=== PATIENT | female | born 1965 ===

== ENCOUNTER 2017-03-23 08:48 | Emergency (ER) | payer OTHER ==
[2017-03-23 08:53] VITALS: RESP 18; TEMP 97.6; BMI 34.0
--- NOTE | 2017-03-23 09:23 | C.PDOC ---
History Of Present Illness 51F c/o itching "burning" rash that started on her lower back 8 days ago and spread around to the low abdomen and under bra line. She saw her pcp who rx benadryl cream but she says this has not helped. No recent travel. No fever, vomiting, diarrhea. Mild dry cough. Denies any PMH or allergies. Time Seen by Provider: 03/23/17 09:00 Chief Complaint (Nursing): Abnormal Skin Integrity Past Medical History Vital Signs: Last Vital Signs Temp 97.6 F 03/23/17 08:53 Pulse 71 03/23/17 08:53 Resp 18 03/23/17 08:53 BP 135/81 03/23/17 08:53 Pulse Ox 96 03/23/17 09:23 - Medical History PMH: Arthritis Denies: Hypercholesterolemia, Chronic Kidney Disease Family History: States: Unknown Family Hx - Social History Hx Alcohol Use: No Hx Substance Use: No - Immunization History Hx Tetanus Toxoid Vaccination: No Hx Influenza Vaccination: No Hx Pneumococcal Vaccination: No Review Of Systems Constitutional: Negative for: Fever, Chills, Weakness, Malaise Eyes: Negative for: Vision Change, Conjunctivae Inflammation, Eyelid Inflammation, Redness ENT: Negative for: Nose Congestion Cardiovascular: Negative for: Chest Pain Respiratory: Negative for: Shortness of Breath Gastrointestinal: Negative for: Nausea, Vomiting, Abdominal Pain, Diarrhea Genitourinary: Negative for: Dysuria Neurological: Negative for: Weakness, Numbness, Confusion, Headache Physical Exam - Physical Exam Appears: Well, Non-toxic, No Acute Distress Skin: Warm, Dry, Rash (mp rash most significantly on midline of lower back and upper buttock, also scattered mp on lower abd and under bra line.) Head: Atraumatic Eye(s): bilateral: PERRL, EOMI Cardiovascular: Rhythm Regular Respiratory: Normal Breath Sounds, No Decreased Breath Sounds Gastrointestinal/Abdominal: Soft, No Tenderness Neurological/Psych: Oriented x3, Other (no focal deficits) ED Course And Treatment O2 Sat by Pulse Oximetry: 96 Medical Decision Making Medical Decision Making: rx lotrimin advised f/u w dermatology Disposition - Disposition Referrals: Maryana Plaza MD [Medical Doctor] - Disposition: HOME/ ROUTINE Disposition Time: 09:25 Condition: GOOD Additional Instructions: Please follow up with your doctor who can refer you to a special education assistant (skin doctor). Return to the ER for any worsening symptoms or for any other concerns. Prescriptions: Clotrimazole 1% Cream [Lotrimin 1%] 30 applic TOP BID #1 tube Instructions: Acute Rash (ED) Forms: Gen Discharge Inst Peruvian Print Language: SWEDISH - Clinical Impression Clinical Impression: Rash
[2017-03-23 10:06] VITALS: BP 126/75; PULSE 75; O2SAT 98
== END 2017-03-23 10:07 | disposition home or self-care (01) ==
LOC: C.ER 08:48
DX: R21 Rash and other nonspecific skin eruption (principal)

== ENCOUNTER 2017-06-19 12:32 | Emergency (ER) | payer OTHER ==
[2017-06-19 12:32] VITALS: BMI 34.0
[2017-06-19 12:36] VITALS: BP 146/81; PULSE 70; RESP 18; TEMP 97.7; O2SAT 96
[2017-06-19] MEDS ORDERED: DiphenhydrAMINE 50 mg/ml Inj IM STA (13:18)
[2017-06-19] MEDS ORDERED: DiphenhydrAMINE 50 mg/ml Inj ONE (13:24)
--- NOTE | 2017-06-19 13:25 | C.PDOC ---
History Of Present Illness 51 year old female presents to the ED for evaluation of itching sensation in her groin, external vaginal and perineal area for the past week. She reports similar episode in the past, used a topical cream with relief. She denies dysuria/hematuria, vaginal bleeding/discharge; pt also denies a hx of diabetes. Time Seen by Provider: 06/19/17 12:41 Chief Complaint (Nursing): Female Genitourinary History Per: Patient History/Exam Limitations: no limitations Onset/Duration Of Symptoms: Days Current Symptoms Are (Timing): Still Present Severity: Mild Abnormal Vaginal Bleeding: No Past Medical History Reviewed: Historical Data, Nursing Documentation, Vital Signs Vital Signs: Last Vital Signs Temp 97.7 F 06/19/17 12:34 Pulse 70 06/19/17 12:34 Resp 18 06/19/17 12:34 BP 146/81 06/19/17 12:34 Pulse Ox 96 06/19/17 14:43 - Medical History PMH: Arthritis Surgical History: No Surg Hx Family History: States: No Known Family Hx - Social History Hx Alcohol Use: No Hx Substance Use: No - Immunization History Hx Tetanus Toxoid Vaccination: No Hx Influenza Vaccination: No Hx Pneumococcal Vaccination: No Review Of Systems Except As Marked, All Systems Reviewed And Found Negative. Cardiovascular: Negative for: Chest Pain, Palpitations Respiratory: Negative for: Cough, Shortness of Breath Gastrointestinal: Negative for: Nausea, Vomiting, Abdominal Pain, Diarrhea Genitourinary: Positive for: Other (perineal itching). Negative for: Dysuria, Hematuria, Vaginal Bleeding Physical Exam - Physical Exam Appears: Well, Non-toxic, No Acute Distress Skin: Normal Color, Warm, Dry Oral Mucosa: Moist Cardiovascular: Rhythm Regular Respiratory: Normal Breath Sounds, No Rales, No Rhonchi, No Wheezing Gastrointestinal/Abdominal: Normal Exam, Bowel Sounds, Soft, No Tenderness Pelvic: Normal External Exam, No Vaginal Bleeding, No Vaginal Discharge, Other ( External genitalia with raised erythematous fungal appearing rash, no vesicular lesions ) Neurological/Psych: Oriented x3 ED Course And Treatment O2 Sat by Pulse Oximetry: 96 (RA) Pulse Ox Interpretation: Normal Progress Note: Patient given PO benadryl for itching in ED. Accucheck ordered and WNL. Rx given for Nystatin cream and benadryl, and patient instructed to follow up with PMD in 1-2 days. She understands she should return to ED if symptoms worsen. Disposition Counseled Patient/Family Regarding: Diagnosis, Need For Followup, Rx Given - Disposition Disposition: HOME/ ROUTINE Disposition Time: 13:20 Condition: STABLE Additional Instructions: SEGUIMIENTO CON PILLAI DOCTOR / CLNICA EN 1-2 MONTERO USE MEDICAMENTOS SEGN LO DIRIGIDO DEVUELVA A LA MATT DE EMERGENCIA SI LOS SNTOMAS EMPEORARAN Prescriptions: DiphenhydrAMINE [Benadryl] 25 mg PO Q6 PRN #15 cap PRN Reason: Itching / Pruritus Nystatin [Mycostatin Cream] 1 appl TP TID #1 tube Instructions: Skin Yeast Infection (ED) Forms: [employer] (Hungarian) Print Language: DIVEHI - POA Present On Arrival: None - Clinical Impression Clinical Impression: Yeast infection, Candidiasis of female genitalia - Scribe Statement The provider has reviewed the documentation as recorded by the Nicki Barbour Provider Attestation: Provider Attestation: All medical record entries made by the Haleighibsylvia were at my direction and personally dictated by me. I have reviewed the chart and agree that the record accurately reflects my personal performance of the history, physical exam, medical decision making, and the department course for this patient. I have also personally directed, reviewed, and agree with the discharge instructions and disposition.
== END 2017-06-19 13:31 | disposition home or self-care (01) ==
LOC: C.ER 12:32
DX: B37.3 Candidiasis of vulva and vagina (principal)
CPT/HCPCS: 96372; 99283; J1200

== ENCOUNTER 2017-10-31 16:40 | Emergency (ER) | payer OTHER ==
[2017-10-31 16:41] VITALS: BMI 34.0
[2017-10-31 16:52] VITALS: O2SAT 95
--- NOTE | 2017-10-31 17:05 | C.PDOC ---
Time Seen by Provider: 10/31/17 17:03 Chief Complaint (Nursing): Abdominal Pain Past Medical History Vital Signs: Last Vital Signs Temp 98 F 10/31/17 16:49 Pulse 75 10/31/17 16:49 Resp 16 10/31/17 16:49 BP 119/71 10/31/17 16:49 Pulse Ox 95 10/31/17 16:49 - Medical History PMH: Arthritis Denies: Diabetes, Hypercholesterolemia, Chronic Kidney Disease Family History: States: Unknown Family Hx - Social History Hx Alcohol Use: No Hx Substance Use: No - Immunization History Hx Tetanus Toxoid Vaccination: No Hx Influenza Vaccination: No Hx Pneumococcal Vaccination: No ED Course And Treatment O2 Sat by Pulse Oximetry: 95 Disposition - Disposition
--- NOTE | 2017-10-31 17:22 | C.PDOC ---
History Of Present Illness 52 yr old female presents to the ER with complaints of suprapubic pain and dysuria for the past 4 days. Patient denies fever, chills, nausea, vomiting, diarrhea, hematuria or back pain. SUPRAPUB PAIN, DYSURIA X 4 DAYS. NO FEVER OTHER ASSOC SX EXAM NEG Time Seen by Provider: 10/31/17 17:03 Chief Complaint (Nursing): Abdominal Pain History Per: Patient History/Exam Limitations: no limitations Onset/Duration Of Symptoms: Days (4) Recent travel outside of the [place]: No Past Medical History Reviewed: Historical Data, Nursing Documentation, Vital Signs Vital Signs: Last Vital Signs Temp 98 F 10/31/17 16:49 Pulse 75 10/31/17 16:49 Resp 16 10/31/17 16:49 BP 119/71 10/31/17 16:49 Pulse Ox 95 10/31/17 17:34 - Medical History PMH: Arthritis Family History: States: No Known Family Hx - Social History Hx Alcohol Use: No Hx Substance Use: No - Immunization History Hx Tetanus Toxoid Vaccination: No Hx Influenza Vaccination: No Hx Pneumococcal Vaccination: No Review Of Systems Except As Marked, All Systems Reviewed And Found Negative. Constitutional: Negative for: Fever, Chills Gastrointestinal: Positive for: Abdominal Pain (Suprapubic). Negative for: Nausea, Vomiting, Diarrhea Genitourinary: Positive for: Dysuria. Negative for: Hematuria Musculoskeletal: Negative for: Back Pain Physical Exam - Physical Exam Appears: Non-toxic, No Acute Distress Skin: Warm, Dry, No Rash Head: Atraumatic, Normacephalic Oral Mucosa: Moist Respiratory: Normal Breath Sounds Gastrointestinal/Abdominal: Normal Exam, Soft, No Tenderness, No Guarding, No Rebound Back: Normal Inspection, No CVA Tenderness Extremity: Normal ROM, No Swelling Neurological/Psych: Oriented x3, Normal Speech, Normal Motor, Normal Sensation ED Course And Treatment O2 Sat by Pulse Oximetry: 95 (RA) Pulse Ox Interpretation: Normal Medical Decision Making Medical Decision Making: PLAN: * POC * Urinalysis Disposition Counseled Patient/Family Regarding: Diagnosis, Need For Followup, Rx Given - Disposition Referrals: [facility] [Outside] [facility] [Outside] Disposition: HOME/ ROUTINE Disposition Time: 17:55 Condition: GOOD Prescriptions: Clotrimazole 1% Vaginal [Lotrimin 1% Vaginal] 1 appl VG DAILY #10 tube Metronidazole [Flagyl] 500 mg PO BID #14 tab Instructions: Vaginitis (ED) Forms: [employer] Connect (Bolivian) Print Language: MAURITANIAN - Clinical Impression Clinical Impression: Vaginitis - Scribe Statement The provider has reviewed the documentation as recorded by the Haleighibe Gail Rosales Provider Attestation: All medical record entries made by the Haleighibe were at my direction and personally dictated by me. I have reviewed the chart and agree that the record accurately reflects my personal performance of the history, physical exam, medical decision making, and the department course for this patient. I have also personally directed, reviewed, and agree with the discharge instructions and disposition.
[2017-10-31 17:46] LABS: RBC URINE 3 /hpf (0-3); URINE BACTERIA RARE (<OCC); URINE BILIRUBIN NEGATIVE (NEGATIVE); URINE BLOOD 1+ (NEGATIVE); URINE COLOR Yellow (YELLOW); URINE GLUCOSE (UA) NORMAL (Normal); URINE KETONE NEGATIVE (NEGATIVE); URINE LEUKOCYTE ESTERASE NEG Leu/uL (Negative); URINE PROTEIN NEGATIVE (NEGATIVE); URINE UROBILINOGEN NORMAL mg/dL (0.2-1.0); WBC URINE 1 /hpf (0-5)
[2017-10-31 18:16] VITALS: BP 111/68; PULSE 64; RESP 18; TEMP 98.4
== END 2017-10-31 18:17 | disposition home or self-care (01) ==
LOC: C.ER 16:40
DX: N76.0 Acute vaginitis (principal)

== ENCOUNTER 2017-11-28 12:00 | Emergency (ER) | payer OTHER ==
[2017-11-28 12:01] VITALS: BMI 34.0
[2017-11-28 12:37] VITALS: BP 126/79; PULSE 80; RESP 20; TEMP 98.6; O2SAT 97
[2017-11-28] MEDS ORDERED: DiphenhydrAMINE 50 mg/ml Inj IM STA (13:19)
--- NOTE | 2017-11-28 13:27 | C.PDOC ---
Time Seen by Provider: 11/28/17 13:02 Chief Complaint (Nursing): Abnormal Skin Integrity Past Medical History Vital Signs: Last Vital Signs Temp 98.6 F 11/28/17 12:34 Pulse 80 11/28/17 12:34 Resp 20 11/28/17 12:34 BP 126/79 11/28/17 12:34 Pulse Ox 97 11/28/17 12:34 - Medical History PMH: Arthritis, Gastritis Denies: Diabetes, Hypercholesterolemia, Chronic Kidney Disease Family History: States: Unknown Family Hx - Social History Hx Alcohol Use: No Hx Substance Use: No - Immunization History Hx Tetanus Toxoid Vaccination: No Hx Influenza Vaccination: No Hx Pneumococcal Vaccination: No ED Course And Treatment O2 Sat by Pulse Oximetry: 97 Disposition - Disposition Disposition: HOME/ ROUTINE Disposition Time: 13:23 Condition: FAIR Additional Instructions: Ms. Gusman, thank you for letting us take care of you today. Return to the ER if your symptoms worsen, or if any problems. Please follow up with your doctor (Dr. Plaza) next week for a re-evaluation. You should follow up with the specialist (an [facility] physician). Take the medication listed below as prescribed. Please keep a food journal to try to figure out what you are allergic too. Prescriptions: DiphenhydrAMINE [Benadryl] 1 tab PO Q6 PRN #30 cap PRN Reason: Itching / Pruritus Methylprednisolone [Medrol Dose Pack (21 tabs)] 4 mg PO DAILY #21 mg Ranitidine HCl [Zantac] 1 tab PO Q12 #60 tablet Instructions: Urticaria (ED), General Allergic Reaction (ED) Forms: Gen Discharge Inst Cambodian, [employer] (Cambodian) Print Language: CANADIAN - POA Present On Arrival: None - Clinical Impression Clinical Impression: Allergic reaction
[2017-11-28] MEDS ORDERED: DiphenhydrAMINE 50 mg/ml Inj ONE (13:28)
== END 2017-11-28 13:35 | disposition home or self-care (01) ==
LOC: C.ER 12:00
DX: T78.49XA Other allergy, initial encounter (principal); X58.XXXA Exposure to other specified factors, initial encounter
CPT/HCPCS: 96372; 99283; J1200

== ENCOUNTER 2018-03-02 08:42 | Emergency (ER) | payer SELFPAY ==
[2018-03-02 08:42] VITALS: BMI 34.0
--- NOTE | 2018-03-02 09:49 | C.PDOC ---
History Of Present Illness 52 y/o female presents to the ED complaining of a rash to her neck for the past 2 days. Patient describes rash as itchy. Reports having a similar rash previously which she was told was an allergic reaction. She denies any tongue swelling and difficulty breathing. No new pets, lotions, foods, or carpeting. Time Seen by Provider: 03/02/18 09:21 Chief Complaint (Nursing): Allergic Reaction History Per: Patient History/Exam Limitations: no limitations Onset/Duration Of Symptoms: Days Current Symptoms Are (Timing): Still Present Past Medical History Reviewed: Historical Data, Nursing Documentation, Vital Signs Vital Signs: Last Vital Signs Temp 98.4 F 03/02/18 10:03 Pulse 80 03/02/18 10:03 Resp 18 03/02/18 10:03 BP 116/75 03/02/18 10:03 Pulse Ox 100 03/02/18 10:03 - Medical History PMH: Arthritis, Gastritis Denies: Diabetes, Hypercholesterolemia, Chronic Kidney Disease Surgical History: No Surg Hx Family History: States: Unknown Family Hx - Social History Hx Tobacco Use: No Hx Alcohol Use: No Hx Substance Use: No - Immunization History Hx Tetanus Toxoid Vaccination: No Hx Influenza Vaccination: No Hx Pneumococcal Vaccination: No Review Of Systems Except As Marked, All Systems Reviewed And Found Negative. Skin: Positive for: Rash Physical Exam - Physical Exam Appears: Non-toxic, No Acute Distress Skin: Warm, Dry, Rash (macular erythematous rash to the anterior neck with urticaria present) Head: Atraumatic, Normacephalic Eye(s): bilateral: Normal Inspection Oral Mucosa: Moist Tongue: Normal Appearing, No Swelling Chest: Symmetrical Respiratory: No Accessory Muscle Use Neurological/Psych: Oriented x3, Normal Speech ED Course And Treatment O2 Sat by Pulse Oximetry: 99 (RA) Pulse Ox Interpretation: Normal Medical Decision Making Medical Decision Making: Impression: Allergic reaction Patient given Benadryl, Pepcid, and Prednisone in the ER, and is stable for discharge home. Provided with prescriptions for Benadryl and Prednisone. Advised to follow up with PMD in 2 days. Disposition Counseled Patient/Family Regarding: Diagnosis, Need For Followup - Disposition Referrals: Zelalem Vinson MD [Non-Staff] - Disposition: HOME/ ROUTINE Disposition Time: 09:47 Condition: STABLE Additional Instructions: follow up with your doctor in 2 days call to make an appointment continue your home medications return to ER if symptoms worsens or progress Prescriptions: DiphenhydrAMINE [Benadryl] 25 mg PO QID PRN #20 cap PRN Reason: Rash predniSONE [predniSONE Tab] 50 mg PO DAILY #4 tab Instructions: Hives, Skin Rash (DC) Forms: Gen Discharge Inst Citizen [place], [employer] (Citizen [place]) Print Language: BENGALI - Clinical Impression Clinical Impression: Allergic urticaria - Scribe Statement The provider has reviewed the documentation as recorded by the Nicki Nagy Provider Attestation: All medical record entries made by the Nicki were at my direction and personally dictated by me. I have reviewed the chart and agree that the record accurately reflects my personal performance of the history, physical exam, medical decision making, and the department course for this patient. I have also personally directed, reviewed, and agree with the discharge instructions and disposition.
[2018-03-02 10:03] VITALS: BP 116/75; PULSE 80; RESP 18; TEMP 98.4
[2018-03-02 11:58] VITALS: O2SAT 99
== END 2018-03-02 10:20 | disposition home or self-care (01) ==
LOC: C.ER 08:42
DX: L50.0 Allergic urticaria (principal)

== ENCOUNTER 2018-05-08 10:52 | Emergency (ER) | payer OTHER ==
[2018-05-08 10:52] VITALS: BMI 34.0
[2018-05-08 11:00] VITALS: TEMP 98.1; O2SAT 98
[2018-05-08] MEDS ORDERED: Lidocaine 5% Patch TD STA (11:19)
[2018-05-08] MEDS ORDERED: Lidocaine 5% Patch TD ONE (11:25)
--- NOTE | 2018-05-08 11:58 | C.PDOC ---
History Of Present Illness 52 y/o female presents to the ED complaining of lower back pain, worse on her left side radiates down left leg. Patient denies any trauma/injuries, incontinence, weakness, numbness, tingling, neuro deficits. Patient also complains of pain to upper shoulders and neck. Time Seen by Provider: 05/08/18 11:08 Chief Complaint (Nursing): Back Pain History Per: Patient History/Exam Limitations: no limitations Onset/Duration Of Symptoms: Days Current Symptoms Are (Timing): Still Present Severity: Moderate Associated Symptoms: denies: Incontinence, New Weakness, New Numbness Past Medical History Reviewed: Historical Data, Nursing Documentation, Vital Signs Vital Signs: Last Vital Signs Temp 98.1 F 05/08/18 10:58 Pulse 78 05/08/18 12:29 Resp 16 05/08/18 12:29 BP 125/84 05/08/18 12:29 Pulse Ox 98 05/09/18 22:52 - Medical History PMH: Arthritis, Gastritis Denies: Diabetes, Hypercholesterolemia, Chronic Kidney Disease Surgical History: No Surg Hx Family History: States: No Known Family Hx - Social History Hx Tobacco Use: No Hx Alcohol Use: No Hx Substance Use: No - Immunization History Hx Tetanus Toxoid Vaccination: No Hx Influenza Vaccination: No Hx Pneumococcal Vaccination: No Review Of Systems Gastrointestinal: Negative for: Nausea, Vomiting, Diarrhea Genitourinary: Negative for: Incontinence Musculoskeletal: Positive for: Neck Pain, Shoulder Pain, Back Pain (Lower back pain, worse on left side radiating down left leg ) Neurological: Negative for: Weakness, Numbness Physical Exam - Physical Exam Appears: Non-toxic Skin: Normal Color, Warm, Dry Head: Atraumatic, Normacephalic Eye(s): bilateral: Normal Inspection, PERRL, EOMI Neck: No Midline Cervical Tenderness, No Paracervical Tenderness, Supple Cardiovascular: Rhythm Regular, No Murmur Respiratory: Normal Breath Sounds, No Rales, No Rhonchi, No Wheezing Gastrointestinal/Abdominal: Soft, No Tenderness Back: No Vertebral Tenderness, Paraspinal Tenderness (left lumbar and left sciatic notch), Other Extremity: Normal ROM, No Tenderness, No Pedal Edema Neurological/Psych: Oriented x3, Normal Speech, Normal Cognition, Normal Motor, Normal Sensation Gait: Steady ED Course And Treatment O2 Sat by Pulse Oximetry: 98 Medical Decision Making Medical Decision Making: pt with lower back pain,. left more than right, radiates down leg. no neuro deficits. also c/o pain to upper shoulders and neck, sullivan dec but not fully resolved after toradol and liododerm patch. d/c with flexeril and Tylenol. Disposition Counseled Patient/Family Regarding: Diagnosis, Need For Followup, Rx Given - Disposition Referrals: Maryana Plaza MD [Medical Doctor] - Disposition: HOME/ ROUTINE Disposition Time: 11:57 Condition: IMPROVED Additional Instructions: Por favor, retire el parche de harding espalda en 12 horas. Por favor tome relajante muscular cada 8 horas si est trabajando y en casa; te hace sueo. No conduzca ni trabaje con kat medicamento. Keizer Tylenol segn lo prescrito. Por favor evite levantar objetos pesados. Nadine un seguimiento con el Dr. Plaza la prxima semana. Please remove patch from your back in 12 hours. Please take muscle relaxant every 8 hours if working and at home; makes you sleepy. Do not drive or work with this medicine. Take Tylenol as prescribed. Please avoid heavy lifting. Follow up with Dr Plaza next week. Prescriptions: Acetaminophen [Tylenol 325mg tab] 650 mg PO Q4 #50 tab Cyclobenzaprine [Cyclobenzaprine HCl] 10 mg PO Q8 #9 tab Instructions: Sciatica (DC), Sciatica Exercises Forms: Gen Discharge Inst Uzbek, [employer] Connect (Uzbek) Print Language: FRISIAN - Clinical Impression Clinical Impression: Sciatica
[2018-05-08 12:09] LABS: SQUAMOUS EPITHIAL 3 /hpf (0-5); URINE BACTERIA RARE (<OCC); URINE BILIRUBIN NEGATIVE (NEGATIVE); URINE BLOOD NEGATIVE (NEGATIVE); URINE CLARITY Clear (Clear); URINE COLOR Yellow (YELLOW); URINE GLUCOSE (UA) NORMAL (Normal); URINE LEUKOCYTE ESTERASE NEG Leu/uL (Negative); URINE PROTEIN NEGATIVE (NEGATIVE); URINE UROBILINOGEN NORMAL mg/dL (0.2-1.0)
[2018-05-08 12:30] VITALS: BP 125/84; PULSE 78; RESP 16
== END 2018-05-08 12:29 | disposition home or self-care (01) ==
LOC: C.ER 10:52
DX: M54.30 Sciatica, unspecified side (principal)
CPT/HCPCS: 81001; 96372; 99283; J1885

== ENCOUNTER 2018-10-11 21:29 | Emergency (ER) | payer SELFPAY ==
[2018-10-11 21:29] VITALS: BMI 34.0
[2018-10-11 22:26] VITALS: BP 147/69; PULSE 66; RESP 19; TEMP 97.9; O2SAT 97
--- NOTE | 2018-10-11 22:48 | C.PDOC ---
Time Seen by Provider: 10/11/18 22:38 Chief Complaint (Nursing): Chest Pain Past Medical History Vital Signs: Last Vital Signs Temp 97.9 F 10/11/18 22:01 Pulse 66 10/11/18 22:01 Resp 19 10/11/18 22:01 BP 147/69 10/11/18 22:01 Pulse Ox 97 10/11/18 22:01 - Medical History PMH: Arthritis, Gastritis Denies: Diabetes, Hypercholesterolemia, Chronic Kidney Disease Family History: States: Unknown Family Hx - Social History Hx Tobacco Use: No Hx Alcohol Use: No Hx Substance Use: No - Immunization History Hx Tetanus Toxoid Vaccination: No Hx Influenza Vaccination: No Hx Pneumococcal Vaccination: No ED Course And Treatment ECG: Interpreted By Me ECG Rhythm: Sinus Rhythm ECG Interpretation: Normal Rate From EC O2 Sat by Pulse Oximetry: 97 Pulse Ox Interpretation: Normal Medical Decision Making Medical Decision Making: digitally and positionally reproducable L chest wall discomfort clear lungs normal housework normal EKG costochondritis Disposition Doctor Will See Patient In The: Office Counseled Patient/Family Regarding: Studies Performed, Diagnosis - Disposition Disposition: HOME/ ROUTINE Disposition Time: 22:48 Condition: GOOD - Clinical Impression Clinical Impression: Chest wall discomfort
--- NOTE | 2018-10-12 01:39 | C.PDOC ---
History Of Present Illness 53 year old female presents to the ED c/o left trapezius and left anterior chest wall pain. Patient reports she has been doing normal housework with no heavy lifting. Patient denies fever, chills, SOB, palpitations, injury, fall, trauma, headache, injury, fall, trauma. Time Seen by Provider: 10/11/18 22:38 Chief Complaint (Nursing): Chest Pain History Per: Patient History/Exam Limitations: no limitations Onset/Duration Of Symptoms: Days Current Symptoms Are (Timing): Still Present Quality: "Pain" Exacerbating Factors: Exertion Recent travel outside of the [place]: No Additional History Per: Patient Past Medical History Reviewed: Historical Data, Nursing Documentation, Vital Signs Vital Signs: Last Vital Signs Temp 97.9 F 10/11/18 22:01 Pulse 66 10/11/18 22:01 Resp 19 10/11/18 22:01 BP 147/69 10/11/18 22:01 Pulse Ox 97 10/11/18 22:48 - Medical History PMH: Arthritis, Gastritis Denies: Diabetes, Hypercholesterolemia, Chronic Kidney Disease Surgical History: No Surg Hx Family History: States: Unknown Family Hx - Social History Hx Tobacco Use: No Hx Alcohol Use: No Hx Substance Use: No - Immunization History Hx Tetanus Toxoid Vaccination: No Hx Influenza Vaccination: No Hx Pneumococcal Vaccination: No Review Of Systems Constitutional: Negative for: Fever, Chills Cardiovascular: Positive for: Chest Pain. Negative for: Palpitations Respiratory: Negative for: Cough, Shortness of Breath Gastrointestinal: Negative for: Nausea, Vomiting, Abdominal Pain Musculoskeletal: Positive for: Back Pain Skin: Negative for: Rash Neurological: Negative for: Weakness, Numbness Physical Exam - Physical Exam Appears: Non-toxic, No Acute Distress Skin: Normal Color, Warm, Dry Head: Atraumatic, Normacephalic Eye(s): bilateral: Normal Inspection Neck: Normal ROM, Supple Chest: Symmetrical, Tenderness (mild tenderness to anterior ches wall left side, mid axillary line) Cardiovascular: Rhythm Regular Respiratory: Normal Breath Sounds, No Rales, No Rhonchi, No Wheezing Gastrointestinal/Abdominal: Soft, No Tenderness, No Guarding, No Rebound Back: Muscle Spasm (bilateral trapezius) Extremity: Normal ROM, No Tenderness, No Swelling Neurological/Psych: Oriented x3, Normal Speech, Normal Cognition Gait: Steady Additional Physical Exam Comments: Exam chaperoned by CHEF DE CUISINE Course And Treatment ECG: Interpreted By Me, Viewed By Me ECG Rhythm: Sinus Rhythm ECG Interpretation: Normal Rate From EC O2 Sat by Pulse Oximetry: 97 (On RA) Pulse Ox Interpretation: Normal Medical Decision Making Medical Decision Making: Plan: * EKG * Motrin 600 mg PO digitally and positionally reproducable L chest wall discomfort clear lungs normal housework normal EKG costochondritis Disposition Doctor Will See Patient In The: Office Counseled Patient/Family Regarding: Studies Performed, Diagnosis - Disposition Referrals: Maryana Plaza MD [Medical Doctor] - Disposition: HOME/ ROUTINE Disposition Time: 22:00 Condition: GOOD Additional Instructions: bolsa de hielo 1/2 hora por hora, nada caliente ibuprofeno 400-600 mg cada 6 horas adri necessario no levanta nada pesada por 1 semana Instructions: Costochondritis Forms: [employer] (Lao) Print Language: MACANESE - Clinical Impression Clinical Impression: Chest wall discomfort - Scribe Statement The provider has reviewed the documentation as recorded by the Scribe Jesus Hood All medical record entries made by the Scribe were at my direction and personally dictated by me. I have reviewed the chart and agree that the record accurately reflects my personal performance of the history, physical exam, medical decision making, and the department course for this patient. I have also personally directed, reviewed, and agree with the discharge instructions and disposition.
--- NOTE | 2018-10-12 19:30 | CARD ---
APPROVED REPORT Date of service: 10/11/2018 EKG Measurement Heart [id number] <Conclusion> Normal sinus rhythm Normal ECG
== END 2018-10-11 22:56 | disposition home or self-care (01) ==
LOC: C.ER 21:29
DX: R07.89 Other chest pain (principal)

== ENCOUNTER 2018-12-31 13:35 | Emergency (ER) | payer SELFPAY ==
[2018-12-31 13:35] VITALS: BMI 34.0
[2018-12-31 13:47] VITALS: BP 123/80; PULSE 73; TEMP 97.7; O2SAT 98
--- NOTE | 2018-12-31 14:00 | C.PDOC ---
History Of Present Illness This is a 53 year old female with no significant past medical history of who presents with a erythematous, maculopapular rash for the past 8 days. She reports the rash is located all along her chest and abdomen. Denied any shortness of breath, chest pain, or chest tightness. She has tried taking benadryl and hydrocortisone which has not provided relief. She denied any new creams, lotions, laundry detergent, new medications, new foods, recent travel. No one else in the house has similar symptoms. This happened to her once before in the summer, she was unable to pinpoint the trigger but was given steroids and it resolved. Time Seen by Provider: 12/31/18 13:59 Chief Complaint (Nursing): Abnormal Skin Integrity History Per: Patient History/Exam Limitations: no limitations Onset/Duration Of Symptoms: Days Current Symptoms Are (Timing): Still Present Location Of Injury: Right: Forearm, Left: Forearm, Anterior: Abdomen, Chest, Forearm Quality Of Symptoms: Itching Severity: Moderate Pain Scale Rating Of: 5 Recent travel outside of the [place]: No Additional History Per: Patient Past Medical History Vital Signs: Last Vital Signs Temp 97.7 F 12/31/18 13:42 Pulse 73 12/31/18 13:42 Resp 18 12/31/18 13:42 BP 123/80 12/31/18 13:42 Pulse Ox 98 12/31/18 13:42 - Medical History PMH: Arthritis, Gastritis Denies: Diabetes, Hypercholesterolemia, Chronic Kidney Disease Family History: States: Unknown Family Hx - Social History Hx Tobacco Use: No Hx Alcohol Use: No Hx Substance Use: No - Immunization History Hx Tetanus Toxoid Vaccination: No Hx Influenza Vaccination: No Hx Pneumococcal Vaccination: No Review Of Systems Constitutional: Negative for: Fever, Chills Respiratory: Negative for: Cough, Shortness of Breath, Wheezing Gastrointestinal: Negative for: Nausea, Vomiting, Abdominal Pain Skin: Positive for: Rash Physical Exam - Physical Exam Appears: Well, Non-toxic, No Acute Distress Skin: Warm, Rash Head: Atraumatic, Normacephalic Chest: Other (maculopapular rash noted on chest, abdomen) Cardiovascular: Rhythm Regular Respiratory: Normal Breath Sounds Gastrointestinal/Abdominal: Normal Exam, Bowel Sounds, Soft, Other (maculopapular rash noted on chest, abdomen) Back: Normal Inspection ED Course And Treatment O2 Sat by Pulse Oximetry: 98 Medical Decision Making Medical Decision Making: Allergic Reaction / Rash - Uncertain of trigger - Decadron, Benadryl, and Pepcid will be given - Will reassess -- Patient reports her pruritus has much improved. Disposition Doctor Will See Patient In The: Office Counseled Patient/Family Regarding: Need For Followup - Disposition Disposition: HOME/ ROUTINE Disposition Time: 15:20 Condition: GOOD Additional Instructions: Continue to use Benadryl as needed. You can also use pepcid or zantac as needed to help with itchiness. Please follow up with your primary care doctor within 1 week, sooner if the rash does not improve. If you start to experience shortness of breath, chest tightness then please come to the emergency room. Please take care and be well! ---- Contine utilizando Benadryl segn sea necesario. Tambin puede usar Pepcid o Zantac segn sea necesario para ayudar con la picazn. Por favor, bolivar un seguimiento con harding mdico de atencin primaria dentro de 1 semana, antes si la erupcin no mejora. Si comienza a experimentar falta de aliento, opresin en el pecho, por favor, venga a la allen de emergencias. Por favor, tenga cuidado y estar jorje!Contine utilizando Benadryl segn sea necesario. Tambin puede usar Pepcid o Zantac segn sea necesario para ayudar con la picazn. Por favor, bolivar un seguimiento con harding mdico de atencin primaria dentro de 1 semana, antes si la erupcin no mejora. Si comienza a experimentar falta de aliento, opresin en el pecho, por favor, venga a la allen de emergencias. Por favor, tenga cuidado y estar jorje! Forms: [employer] ([place]ian) - POA Present On Arrival: None - Clinical Impression Clinical Impression: Allergic contact dermatitis
[2018-12-31] MEDS ORDERED: Dexamethasone 4 mg/1 ml IM STA (14:20)
[2018-12-31] MEDS ORDERED: DiphenhydrAMINE 12.5 mg/5 ml LIQ UD (5 ml) PO STA (14:20)
[2018-12-31] MEDS ORDERED: Dexamethasone 4 mg/1 ml ONE (14:37)
[2018-12-31 15:45] VITALS: RESP 20
== END 2018-12-31 15:43 | disposition home or self-care (01) ==
LOC: C.ER 13:35
DX: L23.9 Allergic contact dermatitis, unspecified cause (principal)
CPT/HCPCS: 96372; 99283; J1100